=== PATIENT | male | born 1985 | race African-American/Black ===

== ENCOUNTER 2022-02-26 12:50 | Inpatient (IN) | payer MEDICAID ==
[~2022-02-26] VITALS: Ht 185.4 cm; Wt 110.1 kg
--- NOTE | 2022-02-26 13:00 | NUR ---
pts wet clothing removed and he is placed in green scrubs. food and water provided. pt will be medicated. pt is cooperative with care and tech is doing belonging inventory.
[2022-02-26] MEDS ORDERED: olanzapine 10mg tablet PO STA (13:03)
[2022-02-26] MEDS ORDERED: LORazepam 1 MG tablet PO ONE (13:05)
[2022-02-26] MEDS ORDERED: venlafaxine 25mg tablet PO ONE (13:05)
[2022-02-26 13:38] LABS: BASOPHILS % (AUTO) 0.5 % (0-1); EOSINOPHILS # (AUTO) 0.1 X10'3 (0-0.9); EOSINOPHILS % (AUTO) 1.1 % (0-6); HEMATOCRIT 45.1 % (42.0-52.0); HEMOGLOBIN 14.7 g/dl (14.0-17.9); LYMPHOCYTES % (AUTO) 20.9 % (21-51); MEAN CORPUSCULAR HEMOGLOBIN 29.1 PG (27.0-31.0); MEAN CORPUSCULAR HGB CONC 32.7 g/dL (33.0-36.5); MEAN CORPUSCULAR VOLUME 88.9 FL (78-98); MEAN PLATELET VOLUME 6.5 FL (7.4-10.4); MONOCYTES # (AUTO) 0.5 X10'3 (0-0.9); MONOCYTES % (AUTO) 10.1 % (2-12); NEUTROPHILS # (AUTO) 3.2 X10'3 (1.8-7.7); NEUTROPHILS % (AUTO) 67.4 % (42-75); PLATELET COUNT 299 X10'3 (140-440); RED BLOOD COUNT 5.07 X10'6 (4.70-6.10); RED CELL DISTRIBUTION WIDTH 13.1 % (11.5-14.5); WHITE BLOOD COUNT 4.7 X10'3 (4.5-11.0)
[2022-02-26 14:00] LABS: ALANINE AMINOTRANSFERASE 78 U/L (12-78); ALBUMIN 3.8 G/DL (3.4-5.0); ALBUMIN/GLOBULIN RATIO 0.8 (1.1-1.5); ALKALINE PHOSPHATASE 113 IU/L (46-116); ANION GAP 8 (8-16); ASPARTATE AMINO TRANSFERASE 85 U/L (10-37); BILIRUBIN,TOTAL 0.5 MG/DL (0.1-1.0); BLOOD UREA NITROGEN 7 MG/DL (7-18); BUN/CREATININE RATIO 6.6 (5.4-32.0); CALCIUM 8.7 MG/DL (8.5-10.1); CHLORIDE 104 MMOL/L (99-107); CREATINE KINASE 967 U/L (39-308); CREATININE 1.06 MG/DL (0.60-1.10); ETHANOL 0.128 GM/DL (0.0-0.010); GLUCOSE 93 MG/DL (70-104); POTASSIUM 3.9 MMOL/L (3.5-5.1); SODIUM 145 MMOL/L (135-145); TOTAL CARBON DIOXIDE 32.9 MMOL/L (24-32); TOTAL PROTEIN 8.5 G/DL (6.4-8.2); eGFR 79 ML/MIN
--- NOTE | 2022-02-26 14:42 | NUR ---
pt resting at this time. no distress noted. will continue to monitor.
--- NOTE | 2022-02-26 16:40 | NUR ---
PT SLEEPING. NO DISTRESS NOTED. WILL CONTINUE TO MONITOR.
--- NOTE | 2022-02-26 18:02 | NUR ---
PT CONTINUES TO SLEEP. WILL ATTEMPT TO COLLECT URINE WHEN HE WAKES.
--- NOTE | 2022-02-26 22:29 | NUR ---
The patient transferred to bed 23 in the ER overflow. He was very drowsy but cooperative. He gave a urine sample and a meal was given to him.
[2022-02-26] MEDS ORDERED: NO HOME MEDS (22:40)
[2022-02-26 22:59] LABS: CLARITY,URINE SLIGHTLY CLOUDY (Clear); COLOR,URINE YELLOW (Yellow); GLUCOSE, URINE NEGATIVE (Neg); KETONES,URINE TRACE mg/dl (Neg); LEUKOCYTE ESTERASE ,URINE NEGATIVE (Neg); NITRITES, URINE NEGATIVE (Neg); OCCULT BLOOD,URINE SMALL (Neg); PROTEIN,URINE TRACE mg/dl (Neg); UROBILINOGEN,URINE 0.2 E.U/dL (0.2-1.0)
[2022-02-26 23:00] LABS: UA COLLECTION TYPE CLN CATCH MIDSTREAM; URINE AMPHETAMINE SCREEN POSITIVE (Neg); URINE BARBITUATE SCREEN NEGATIVE (Neg); URINE BENZODIAZEPINES SCREEN NEGATIVE (Neg); URINE CANNABINOID SCREEN NEGATIVE (Neg); URINE COCAINE SCREEN NEGATIVE (Neg); URINE METHADONE SCREEN NEGATIVE (Neg); URINE OPIATE SCREEN NEGATIVE (Neg); URINE PHENCYCLIDINE SCREEN NEGATIVE (Neg)
[2022-02-26 23:04] LABS: BACTERIA,URINE FEW /HPF (Neg); MUCUS STRANDS FEW /LPF (Neg); SQUAMOUS EPITHELIAL CELL,UR FEW /LPF (FEW)
[2022-02-26 23:05] LABS: TRANSITIONAL EPI CELLS,URINE FEW /HPF; YEAST FEW /HPF (NEGATIVE)
--- NOTE | 2022-02-26 23:28 | NUR ---
The patient appears to be sleeping
--- NOTE | 2022-02-26 23:29 | NUR ---
PACKET SENT TO [facility]
--- NOTE | 2022-02-27 01:04 | NUR ---
The patient appears to be sleeping but is tossing and turning
--- NOTE | 2022-02-27 02:54 | NUR ---
The patient appears to be sleeping
--- NOTE | 2022-02-27 05:10 | NUR ---
The patient appears to be sleeping
--- NOTE | 2022-02-27 07:27 | NUR ---
Patient sleeping in bed at change of shift. No S/S of distress noted.
--- NOTE | 2022-02-27 09:38 | NUR ---
Patient ate breakfast, and is now sleeping in bed.
--- NOTE | 2022-02-27 10:14 | NUR ---
[facility] here evaluating patient.
--- NOTE | 2022-02-27 10:44 | NUR ---
Patient up to restroom, using warm wipes to clean himself with. New clean bed sheets applied.
--- NOTE | 2022-02-27 10:45 | NUR ---
pt upon interaction w/ [facility] clinician requested a shower, tech gave warm wipes as an alternative and fresh clothes. While pt cleaned up in the bathroom tech changed pt sheets
--- NOTE | 2022-02-27 12:18 | NUR ---
Breaking RN for lunch. Received report
--- NOTE | 2022-02-27 13:05 | NUR ---
Fina called for a nurse to nurse.
--- NOTE | 2022-02-27 14:00 | NUR ---
Lab here to draw new labs CK.
[2022-02-27 14:24] LABS: CREATINE KINASE 399 U/L (39-308)
[2022-02-27 15:05] VITALS: BP 143/98
--- NOTE | 2022-02-27 15:05 | NUR ---
RN received pt. from ER overflow escorted by security. Pt. cooperative with skin assessment and 1:1 assessment. 5150 states, "You jumped [place] the [place] with the intention of killing yourself". During interview pt. endorses SI without a plan, as well as auditory hallucinations, states he hear's random words like, "Chance". Pt. reports he had [facility] before he relapsed 2 days ago, drinking whiskey until he blacked out and snorting meth. Pt. reports he is now homeless. Pt. c/o headache rated 8/10 and received Tylenol 650mg po with good effect. Pt. c/o anxiety and received Ativan 1mg po with good effect.
--- NOTE | 2022-02-27 15:10 | NUR ---
Patient taken upstairs to [facility] with security supervisor. All belongings were taken with patient.
[2022-02-27] MEDS ORDERED: NICOTINE POLACRILEX 2 MG LOZENGE BC PRN (15:35)
[2022-02-27] MEDS ORDERED: magnesium hydroxide 30ml (MOM) UD suspension PO PRN (15:35)
[2022-02-27] MEDS ORDERED: mag hydrox/Alum hydrox/simeth 30ml oral suspension PO PRN (15:35)
[2022-02-27] MEDS ORDERED: loperamide 2mg capsule PO PRN (15:35)
[2022-02-27] MEDS ORDERED: acetaminophen 325mg tablet PO PRN (15:35)
[2022-02-27] MEDS ORDERED: traZODone 50mg tablet PO PRN (16:45)
[2022-02-27] MEDS ORDERED: LORazepam 1 MG tablet PO ONE (16:45)
[2022-02-27] MEDS: acetaminophen 325mg tablet PO PRN (16:48)
[2022-02-27 19:00] VITALS: BP 109/64
[2022-02-27] MEDS: traZODone 50mg tablet PO PRN (22:04)
--- NOTE | 2022-02-28 05:31 | NUR ---
Nursing Progress Note: Problem: Patient is 5150 status. Per admit note "You jumped off the clear [place] with the intention of killing yourself". During interview pt. endorses SI without a plan, as well as auditory hallucinations, states he hear's random words like, "Chance". Pt. reports he had been living at [facility] for 4 months before he relapsed 2 days ago, drinking whiskey until he blacked out and snorting meth. Pt. reports he is now homeless. Interventions: Medication administration, 1:1 MH assessment, maintained a safe and supportive environment, provided clear and simple instructions, provided encouragement regarding performance of ADLs, monitored behaviors and maintained clear boundaries, maintained Q15 minute safety checks. Response: Patient isolates in his room following shift change. Patient denies S/I, H/I or any hallucinations. Patient mineralizes any problems. A flat affect is present. Patient presents as depressed but denies same. Patient denies a BM today. Plan: Pt requires stabilization with medication adjustment and management in a safe and therapeutic environment.
[2022-02-28 08:00] VITALS: BP 147/99
[2022-02-28] MEDS: nicotine 21mg patch - 24 hr TD SCH (08:00)
[2022-02-28] MEDS: acetaminophen 325mg tablet PO PRN ×2 (08:09→18:03)
[2022-02-28 09:52] LABS: CHOL/HDL RATIO 2.1 (0.00-4.99); CHOLESTEROL 146 MG/DL (0-200); HDL CHOLESTEROL 68 MG/DL (35-60); LDL CHOLESTEROL 74 MG/DL (50-100); TRIGLYCERIDES 67 MG/DL (20-135)
[2022-02-28 09:54] LABS: HEMOGLOBIN A1C 5.6 % (4.5-6.2)
[2022-02-28] MEDS ORDERED: LORazepam 1 MG tablet PO ONE (12:55)
[2022-02-28] MEDS: fluticasone nasal spray 16GM bottle NS SCH (13:05)
[2022-02-28] MEDS: azithromycin 250mg tablet PO SCH (13:30)
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
[2022-02-28] MEDS ORDERED: venlafaxine XR 37.5mg cap (Q24H) PO ONE (19:05)
[2022-02-28 20:00] VITALS: BP 138/96
[2022-02-28] MEDS: traZODone 50mg tablet PO PRN (21:23)
--- NOTE | 2022-03-01 01:01 | NUR ---
Nursing Progress Note: Problem: Patient is 5150 status. Per admit note "You jumped off the clear [place] with the intention of killing yourself". During interview pt. endorses SI without a plan, as well as auditory hallucinations, states he hear's random words like, "Chance". Pt. reports he had been living at [facility] for 4 months before he relapsed 2 days ago, drinking whiskey until he blacked out and snorting meth. Pt. reports he is now homeless. Interventions: Medication administration, 1:1 MH assessment, maintained a safe and supportive environment, provided clear and simple instructions, provided encouragement regarding performance of ADLs, monitored behaviors and maintained clear boundaries, maintained Q15 minute safety checks. Response: Patient isolates in his room following shift change. Patient denies S/I, H/I or any hallucinations. Patient mineralizes any problems. A flat affect is present. Patient presents as depressed but denies same. Patient denies a BM today. Trazadone was given for sleep. Patient is medication compliant. Plan: Pt requires stabilization with medication adjustment and management in a safe and therapeutic environment.
[2022-03-01 08:00] VITALS: BP 149/91
[2022-03-01] MEDS: nicotine 21mg patch - 24 hr TD SCH (08:00)
[2022-03-01] MEDS: fluticasone nasal spray 16GM bottle NS SCH (08:00)
[2022-03-01] MEDS: venlafaxine XR 75mg capsule (Q24H) PO SCH (08:57)
[2022-03-01] MEDS: azithromycin 250mg tablet PO SCH (08:57)
--- NOTE | 2022-03-01 16:55 | NUR ---
Nursing Progress Note: Problem: Patient is 5150 status. Per admit note "You jumped [place] the [place] with the intention of killing yourself". During interview pt. endorses SI without a plan, as well as auditory hallucinations, states he hears random words like, "Chance". Pt. reports he had been living at [facility] for 4 months before he relapsed 2 days ago, drinking whiskey until he blacked out and snorting meth. Pt. reports he is now homeless. Interventions: Medication administration, 1:1 MH assessment, maintained a safe and supportive environment, provided clear and simple instructions, provided encouragement regarding performance of ADLs, monitored behaviors and maintained clear boundaries, maintained Q15 minute safety checks. Response: Received Pt in bed sleeping w/o distress at the beginning of this shift. Pt woke and was cooperative with vitals. Pt took AM meds w/o issue and ate breakfast. Pt attempted to be nice to Pt he had verbal confrontation with yesterday and was met with anger. Pt able to avoid interaction with other Pt and was pleasant and cooperative in interaction. Pt talkative when engaged and states he is going to get well and get out of here. Pt ate lunch well and watched TV in afternoon. He napped in the morning and his sweatshirt was gotten out of storage for him. Pt speaking clearly and coherently but appears guarded with information. Plan: Pt requires stabilization with medication adjustment and management in a safe and therapeutic environment.
[2022-03-01] MEDS: acetaminophen 325mg tablet PO PRN (17:34)
[2022-03-01 20:00] VITALS: BP 149/95
[2022-03-01] MEDS ORDERED: LORazepam 1 MG tablet PO ONE (20:10)
[2022-03-01] MEDS: traZODone 50mg tablet PO PRN (21:01)
--- NOTE | 2022-03-02 05:05 | NUR ---
Nursing Progress Note: Problem: Patient is 5150 status. Per admit note "You jumped off the clear [place] with the intention of killing yourself". During interview pt. endorses SI without a plan, as well as auditory hallucinations, states he hear's random words like, "Chance". Pt. reports he had been living at [facility] for 4 months before he relapsed 2 days ago, drinking whiskey until he blacked out and snorting meth. Pt. reports he is now homeless. Interventions: Medication administration, 1:1 MH assessment, maintained a safe and supportive environment, provided clear and simple instructions, provided encouragement regarding performance of ADLs, monitored behaviors and maintained clear boundaries, maintained Q15 minute safety checks. Response: Patient primarily isolates in his room following shift change. He is well oriented. Patient states he feels depressed but not suicidal. Patient denies H/I. Some anxiety was present this shift. Patient was given PRN Trazadone and an Ativan. The patient is quite cooperative and medication compliant. Plan: Pt requires stabilization with medication adjustment and management in a safe and therapeutic environment.
[2022-03-02 08:00] VITALS: BP 106/66
[2022-03-02] MEDS: nicotine 21mg patch - 24 hr TD SCH (08:00)
[2022-03-02] MEDS ORDERED: salt irrigation nasal spray 45 ML SPRAY NS PRN (08:05)
[2022-03-02] MEDS ORDERED: benzocaine/menthol oral lozeng 1 EACH BOX MM PRN (08:05)
--- NOTE | 2022-03-02 08:06 | NUR ---
Received orders from Dr. Casillas for nasal saline and Chloraseptic throat lozenges to be given PRN r/t postnasal drip causing pt. to have difficulty sleeping. Pt. has sinusitis, will continue to monitor closely.
[2022-03-02] MEDS ORDERED: HALLS - SOOTHE MENTHOL 1.8 MG cough drop LOZENGE MM PRN (08:13)
[2022-03-02] MEDS: azithromycin 250mg tablet PO SCH (08:38)
[2022-03-02] MEDS: venlafaxine XR 75mg capsule (Q24H) PO SCH (08:39)
[2022-03-02] MEDS: fluticasone nasal spray 16GM bottle NS SCH (08:39)
[2022-03-02] MEDS: hydrOXYzine 25 MG tablet PO PRN (14:43)
--- NOTE | 2022-03-02 16:03 | NUR ---
Nursing Progress Note: Problem : Patient is 5150 status. Per admit note "You jumped off the [place] with the intention of killing yourself". During interview pt. endorses SI without a plan, as well as auditory hallucinations, states he hear's random words like, "Chance". Pt. reports he had been living at [facility] for 4 months before he relapsed 2 days ago, drinking whiskey until he blacked out and snorting meth. Pt. reports he is now homeless. Interventions : Introduced self and established rapport, maintained a safe and supportive environment, ensured contract for safety, provided clear and simple instructions, provided education on hand washing r/t positive MRSA swab, and maintained Q 15min safety checks. Response : Received pt. sleeping in bed at the beginning of the shift, he awoke and attended breakfast in the Group Room. Pt. sat up afterwards and was observed to be interacting appropriately with others. Pt. greeted this typewriter assembler appropriately, however reported he feels tired because he did not sleep well last night. Later, at approximately 1430, pt. requested an anxiolytic, and stated, "People are invading my space and I'm trying not to go off!" He retreated to his room to lay down and this typewriter assembler obtained an order from Dr. Casillas for PRN Atarax 25mg TID, PRN. This medication was administered with effectiveness. 1:1 was completed, pt. is currently denying any S/I and reports some ongoing depression r/t lack of housing. Plan : Per Dr. Casillas, pt. continues to require a safe and supportive environment and is at this time at high risk if discharged.
[2022-03-02 20:17] VITALS: BP 135/77
[2022-03-02] MEDS: traZODone 50mg tablet PO PRN (20:32)
[2022-03-03] MEDS: traZODone 50mg tablet PO PRN ×3 (01:38→21:29)
--- NOTE | 2022-03-03 02:55 | NUR ---
Nursing Progress Note: Problem : Patient is 5150 status. Per admit note "You jumped off the [place] with the intention of killing yourself". During interview pt. endorses SI without a plan, as well as auditory hallucinations, states he hear's random words like, "Chance". Pt. reports he had been living at [facility] for 4 months before he relapsed 2 days ago, drinking whiskey until he blacked out and snorting meth. Pt. reports he is now homeless. Interventions : Introduced self and established rapport, maintained a safe and supportive environment, ensured contract for safety, provided clear and simple instructions, provided education on hand washing r/t positive MRSA swab, and maintained Q 15min safety checks. Response : Pt up on unit at start of shift. Interacting pleasantly with staff and other pts. He asked about medication for sleep. He said "I have not been sleeping hardly at all" Documented sleep hours for the last 3 days = 9, 7.5, and 8. Pt took first dose of PRN Trazodone and slept for several hours, Woke up given second dose per his request. Pt is back to bed sleeping at this time. He denies SI/HI A/V/H Plan : Per Dr. Casillas, pt. continues to require a safe and supportive environment and is at this time at high risk if discharged.
[2022-03-03 08:00] VITALS: BP 114/59
[2022-03-03] MEDS: fluticasone nasal spray 16GM bottle NS SCH (08:00)
[2022-03-03] MEDS: nicotine 21mg patch - 24 hr TD SCH (08:00)
[2022-03-03] MEDS: azithromycin 250mg tablet PO SCH (08:01)
[2022-03-03] MEDS: venlafaxine XR 75mg capsule (Q24H) PO SCH (08:01)
--- NOTE | 2022-03-03 12:39 | NUR ---
Initial: Pt admit DX major depressive d/o, SI, meth/etoh use d/o per EMR. PO ~100% mostly regular diet meeting estimated needs. LBM 03/01 per EMR. No nutrition interventions at this time. Will continue to follow. Rec: 1. continue regular diet 2. bowel care per rx 3. weekly wts Addendum: 03/03/22 at [address] Amended: Links added.
--- NOTE | 2022-03-03 14:03 | NUR ---
5250 RELEASED Addendum: 03/03/22 at 1411 by Leticia WOLFF Patient willing to sign [facility]
--- NOTE | 2022-03-03 17:56 | NUR ---
Nursing Progress Note: Problem: Patient is 5150 status. Per admit note "You jumped off the [place] with the intention of killing yourself". During interview pt. endorses SI without a plan, as well as auditory hallucinations, states he hear's random words like, "Chance". Pt. reports he had been living at [facility] for 4 months before he relapsed 2 days ago, drinking whiskey until he blacked out and snorting meth. Pt. reports he is now homeless. Interventions: Medication administration, 1:1 MH assessment, maintained a safe and supportive environment, provided clear and simple instructions, provided encouragement regarding performance of ADLs, monitored behaviors and maintained clear boundaries, maintained Q15 minute safety checks. Response: RN received pt. asleep in bed at start of shift. Pt. awoke for breakfast. Pt. went back to sleep. Pt. won his hearing today and signed voluntary. 1:1 done in community room. Reports feeling better, states, I need to stay a couple more days to figure out my housing situation figured out. Pt. reports his sinusitis symptoms are improving, pt. states, I think the antibiotics are working. Plan: Pt requires stabilization with medication adjustment and management in a safe and therapeutic environment.
[2022-03-03 20:00] VITALS: BP 138/79
--- NOTE | 2022-03-04 02:24 | NUR ---
Nursing Progress Note: Problem: Patient is 5150 status. Per admit note "You jumped off the clear [place] with the intention of killing yourself". During interview pt. endorses SI without a plan, as well as auditory hallucinations, states he hear's random words like, "Chance". Pt. reports he had been living at [facility] for 4 months before he relapsed 2 days ago, drinking whiskey until he blacked out and snorting meth. Pt. reports he is now homeless. Interventions: Medication administration, 1:1 assessment, maintained a safe and supportive environment, maintained Q15 minute safety checks. Response: Pt. up and watching football at the start of the shift. He was social with other patients. During our 1:1 he reports feeling better, having time to think about his life and figure out where to go from here. Reports recent stressors of the mother of his 5 month old losing custody. Denied any current S/I, H/I, A/V/H. Affect was euthymic, mood "good." He states he plans on going to the [facility] after discharge and work their program till he can save up enough money to get on his feet. Trazadone PRN x 2 administered per patients request due to sleep issues. He has been sleeping well since he went to bed. Plan: Pt requires stabilization with medication adjustment and management in a safe and therapeutic environment.
[2022-03-04 08:00] VITALS: BP 115/74
[2022-03-04] MEDS: nicotine 21mg patch - 24 hr TD SCH (08:00)
[2022-03-04] MEDS: fluticasone nasal spray 16GM bottle NS SCH (08:00)
[2022-03-04] MEDS: venlafaxine XR 75mg capsule (Q24H) PO SCH (08:30)
[2022-03-04] MEDS: azithromycin 250mg tablet PO SCH (08:31)
--- NOTE | 2022-03-04 16:14 | NUR ---
Therapeutic group Description: Daily therapeutic groups support [facility] crisis-stabilization mission. Topic: psycho-social education regarding warm lines, crisis lines, having the numbers your need with you (providers, emergency contacts, etc). Exercise: identifying the emotions in your heart, and the amount. Intervention: Therapeutic communication, peer support, validation by peers, coping skills and psychosocial education. Secondarily, intellectual and physical activity, peer, and staff companionship, alleviating and discouraging isolation. Response: Client participated in group, watching quietly. Client stated he felt overwhelmed: "This [indicating the unit] is just a lot. The last few days have been intense." Client talked with peers, and seemed to relax. Treatment Until stable, client requires time in a safe and therapeutic environment employing multidisciplinary treatments, including therapeutic groups.
--- NOTE | 2022-03-04 17:55 | NUR ---
Nursing Progress Note: Problem: Patient is 5150 status. Per admit note "You jumped off the clear [place] with the intention of killing yourself". During interview pt. endorses SI without a plan, as well as auditory hallucinations, states he hears random words like, "Chance". Pt. reports he had been living at [facility] for 4 months before he relapsed 2 days ago, drinking whiskey until he blacked out and snorting meth. Pt. reports he is now homeless. Interventions: Medication administration, 1:1 MH assessment, maintained a safe and supportive environment, provided clear and simple instructions, provided encouragement regarding performance of ADLs, monitored behaviors and maintained clear boundaries, maintained Q15 minute safety checks. Response: RN received pt. asleep in bed at start of shift. Pt. awoke for breakfast and took all medications. 1:1 done at bedside, pt. denies SI/HI, A/V hallucinations. Pt. reports feeling anxious about being able to take care of his daughter who is currently with her mother, however, his daughters mother also has mental health issues. Pt. states, I realize I need to get myself stable first before I can help my daughter. Pt. reports he hopes to get into a program at [facility] where he can live and work. Pt. observed socializing with peers and watching TV in the community room. Pt. states, I need to let my roommate know I need some space. Plan: Pt requires stabilization with medication adjustment and management in a safe and therapeutic environment.
[2022-03-04 20:00] VITALS: BP 145/89
[2022-03-04] MEDS: traZODone 50mg tablet PO SCH (21:34)
--- NOTE | 2022-03-05 03:29 | NUR ---
Nursing Progress Note: Problem: Patient is 5150 status. Per admit note "You jumped off the clear [place] with the intention of killing yourself". During interview pt. endorses SI without a plan, as well as auditory hallucinations, states he hear's random words like, "Chance". Pt. reports he had been living at [facility] for 4 months before he relapsed 2 days ago, drinking whiskey until he blacked out and snorting meth. Pt. reports he is now homeless. Interventions: Medication administration, 1:1 assessment, maintained a safe and supportive environment, maintained Q15 minute safety checks. Response: Received Pt in community room after dinner watching TV with others. Pt pleasant and cooperative with vitals and overall. Pt hoping to get into the [employer] and start job searching. Denied any current S/I, H/I, A/V/H. Pt very tolerant of a manic Pts intrusiveness and advances. He took HS meds and went to bed where he is sleeping w/o distress. Plan: Pt requires stabilization with medication adjustment and management in a safe and therapeutic environment.
[2022-03-05] MEDS: hydrOXYzine 25 MG tablet PO PRN (05:30)
[2022-03-05 07:30] VITALS: BP 117/72
[2022-03-05] MEDS: nicotine 21mg patch - 24 hr TD SCH (08:00)
[2022-03-05] MEDS: fluticasone nasal spray 16GM bottle NS SCH (08:00)
[2022-03-05] MEDS: azithromycin 250mg tablet PO SCH (08:08)
[2022-03-05] MEDS: venlafaxine XR 75mg capsule (Q24H) PO SCH (08:08)
--- NOTE | 2022-03-05 09:48 | NUR ---
CASE MANAGEMENT [facility] coming to interview client at 2 pm today, confirmed with Khari Trevizo LCSW
--- NOTE | 2022-03-05 15:11 | NUR ---
ACCEPTED AT [facility]
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
--- NOTE | 2022-03-05 18:35 | NUR ---
Note below was charted on pt. in error.
--- NOTE | 2022-03-05 18:36 | NUR ---
Nursing Progress Note: Problem: Patient is 5150 status. Per admit note "You jumped off the clear [place] with the intention of killing yourself". During interview pt. endorses SI without a plan, as well as auditory hallucinations, states he hears random words like, "Chance". Pt. reports he had been living at [facility] for 4 months before he relapsed 2 days ago, drinking whiskey until he blacked out and snorting meth. Pt. reports he is now homeless. Interventions: Medication administration, 1:1 MH assessment, maintained a safe and supportive environment, provided clear and simple instructions, provided encouragement regarding performance of ADLs, monitored behaviors and maintained clear boundaries, maintained Q15 minute safety checks. Response: RN received pt. asleep in bed at start of shift. Pt awoke for breakfast and took all medication. Pt. had interview with [facility] and was accepted. Pt. will be discharged to [facility] on Thursday. 1:1 done at bedside, pt denies all psych symptoms and reports he is happy about getting into the the [facility]. Pt. was social and observed watching TV in community room with peers. Plan: Pt requires stabilization with medication adjustment and management in a safe and therapeutic environment.
[2022-03-05 19:00] VITALS: BP 125/74
[2022-03-05] MEDS: traZODone 50mg tablet PO SCH (20:32)
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
[2022-03-06] MEDS ORDERED: HYDR-3686 PO (07:27)
[2022-03-06] MEDS ORDERED: NICO-687 TD (07:27)
[2022-03-06] MEDS ORDERED: FLUT16SP NS (07:27)
[2022-03-06] MEDS ORDERED: TRAZ-256 PO (07:27)
[2022-03-06] MEDS ORDERED: VENL150T3 PO (07:27)
[2022-03-06] MEDS: venlafaxine XR 75mg capsule (Q24H) PO SCH (07:32)
[2022-03-06] MEDS: nicotine 21mg patch - 24 hr TD SCH (07:34)
[2022-03-06] MEDS: fluticasone nasal spray 16GM bottle NS SCH (07:34)
[2022-03-06 08:00] VITALS: BP 105/60
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
--- NOTE | 2022-03-06 14:18 | NUR ---
[facility] ADMIT 03/11/22 Ilda has been admitted to [facility], they will not be able to admit him until next week on 03/11/2022. (Thursday03/10/2022 is a holiday). AZAM Champagne
--- NOTE | 2022-03-06 15:55 | NUR ---
Nursing Progress Note: Ilda Problem: Patient is 5150 status. Per admit note "You jumped off the clear [place] bridge with the intention of killing yourself". During interview pt. endorses SI without a plan, as well as auditory hallucinations, states he hears random words like, "Chance". Pt. reports he had been living at [facility] for 4 months before he relapsed 2 days ago, drinking whiskey until he blacked out and snorting meth. Pt. reports he is now homeless. Interventions: Medication administration, 1:1 MH assessment, maintained a safe and supportive environment, provided clear and simple instructions, provided encouragement regarding performance of ADLs, monitored behaviors and maintained clear boundaries, maintained Q15 minute safety checks. Response: Pt. received asleep and awoke to attend breakfast. Pt. took his medications without hesitation and denies all MH symptoms. He is cooperative with staff and has good eye contact. He ate all meals with cohorts and ambulated around the unit most of the shift. He spent time socializing with cohorts and watching TV. He received a CXR and was tested for COVID 19 d/t upcoming placement. He has good hygiene, well groomed, and wears unit scrubs. Pt. reports his DC has been moved to Thursday d/t the holiday. Plan: Pt requires stabilization with medication adjustment and management in a safe and therapeutic environment.
[2022-03-06 20:00] VITALS: BP 132/78
[2022-03-06] MEDS: traZODone 50mg tablet PO SCH (21:24)
--- NOTE | 2022-03-06 23:22 | NUR ---
Nursing Progress Note: Ilda Problem: Patient is 5150 status. Per admit note "You jumped off the clear [place] bridge with the intention of killing yourself". During interview pt. endorses SI without a plan, as well as auditory hallucinations, states he hears random words like, "Chance". Pt. reports he had been living at [facility] for 4 months before he relapsed 2 days ago, drinking whiskey until he blacked out and snorting meth. Pt. reports he is now homeless. Interventions: Medication administration, 1:1 MH assessment, maintained a safe and supportive environment, provided clear and simple instructions, provided encouragement regarding performance of ADLs, monitored behaviors and maintained clear boundaries, maintained Q15 minute safety checks. Response: The patient is in the community room watching television and socializing with his peers. The patient presents as upbeat. He is well oriented and cooperative. The patient states he is happy to be transferring the [facility] soon, he states it will be Thursday. The patient denies S/I, H/I or any hallucinations. The patient is compliant with medications. He is cooperative with staff. Plan: Pt requires stabilization with medication adjustment and management in a safe and therapeutic environment.
[2022-03-07] MEDS: venlafaxine XR 75mg capsule (Q24H) PO SCH (07:24)
[2022-03-07 08:00] VITALS: BP 116/70
[2022-03-07] MEDS: nicotine 21mg patch - 24 hr TD SCH (08:00)
[2022-03-07] MEDS: fluticasone nasal spray 16GM bottle NS SCH (08:00)
--- NOTE | 2022-03-07 16:20 | NUR ---
Nursing Progress Note: Ilda Problem: Patient is 5150 status. Per admit note "You jumped off the clear [place] bridge with the intention of killing yourself". During interview pt. endorses SI without a plan, as well as auditory hallucinations, states he hears random words like, "Chance". Pt. reports he had been living at [facility] for 4 months before he relapsed 2 days ago, drinking whiskey until he blacked out and snorting meth. Pt. reports he is now homeless. Interventions: Medication administration, 1:1 MH assessment, maintained a safe and supportive environment, provided clear and simple instructions, provided encouragement regarding performance of ADLs, monitored behaviors and maintained clear boundaries, maintained Q15 minute safety checks. Response: Pt. received asleep and awoke to take his medications. He continues to deny all MH symptoms, and reports hes looking forward to going to the [facility] He is cooperative with staff and interacts with [facility] appropriately. He ate all meals in the community room with [facility]. He spent a considerable amount of time watching tv. His hygiene is good, well groomed, and wears unit scrubs. Pt. Dc plan is to leave on Thursday03/11/22. Pt. refused scheduled Nasonex and Nicotine patch reporting, he doesnt need either one. Plan: Pt requires stabilization with medication adjustment and management in a safe and therapeutic environment.
--- NOTE | 2022-03-07 16:20 | NUR ---
Nursing Progress Note: Ilda Problem: Patient is 5150 status. Per admit note "You jumped off the clear [place] bridge with the intention of killing yourself". During interview pt. endorses SI without a plan, as well as auditory hallucinations, states he hears random words like, "Chance". Pt. reports he had been living at [facility] for 4 months before he relapsed 2 days ago, drinking whiskey until he blacked out and snorting meth. Pt. reports he is now homeless. Interventions: Medication administration, 1:1 MH assessment, maintained a safe and supportive environment, provided clear and simple instructions, provided encouragement regarding performance of ADLs, monitored behaviors and maintained clear boundaries, maintained Q15 minute safety checks. Response: Pt. received asleep and awoke to take his medications. He continues to deny all MH symptoms, and reports hes looking forward to going to the [facility]. He is cooperative with staff and interacts with [facility] appropriately. He ate all meals in the community room with [facility]. He spent a considerable amount of time watching tv. His hygiene is good, well groomed, and wears unit scrubs. Pt. Dc plan is to leave on Thursday03/11/22. Pt. refused scheduled Nasonex and Nicotine patch reporting, he doesnt need either one. Plan: Pt requires stabilization with medication adjustment and management in a safe and therapeutic environment.
[2022-03-07 19:52] VITALS: BP 147/85
[2022-03-07] MEDS: traZODone 50mg tablet PO SCH (20:49)
[2022-03-08] MEDS: venlafaxine XR 75mg capsule (Q24H) PO SCH (07:52)
[2022-03-08] MEDS: nicotine 21mg patch - 24 hr TD SCH (07:53)
[2022-03-08] MEDS: fluticasone nasal spray 16GM bottle NS SCH (07:53)
[2022-03-08 08:00] VITALS: BP 110/64
--- NOTE | 2022-03-08 15:30 | NUR ---
Nursing Progress Note: Problem: Patient is 5150 status. Per admit note "You jumped off the clear [place] bridge with the intention of killing yourself". During interview pt. endorses SI without a plan, as well as auditory hallucinations, states he hears random words like, "Chance". Pt. reports he had been living at [facility] for 4 months before he relapsed 2 days ago, drinking whiskey until he blacked out and snorting meth. Pt. reports he is now homeless. Interventions: Medication administration, 1:1 MH assessment, maintained a safe and supportive environment, provided clear and simple instructions, provided encouragement regarding performance of ADLs, monitored behaviors and maintained clear boundaries, maintained Q15 minute safety checks. Response: Received Pt in bed sleeping w/o distress at change of shift. He woke and was cooperative with vitals and returned to sleep. Pt woke and asked for water and ate breakfast in community room with others. He took his AM Effexor and stated he did not need Nasal [place] or Nicotine patch. Pt pleasant and cooperative and denies SI/HI and MH symptoms. 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 Pt watched footba; and ate snacks in community room in afternoon. Pt requested tests r/t STDs and hepatitis which were ordered By Jody YU. Plan: Pt requires stabilization with medication adjustment and management in a safe and therapeutic environment. Pt. Dc plan is to leave on Thursday03/11/22 to the [facility].
[2022-03-08 19:00] VITALS: BP 139/78
[2022-03-08] MEDS: traZODone 50mg tablet PO SCH (20:37)
--- NOTE | 2022-03-09 04:21 | NUR ---
RN PROGRESS NOTE: LEGAL HOLD: [facility] for DTS REASON FOR ADMIT: Per 5150 "You jumped off the clear [place] bridge with the intention of killing yourself". During interview pt. endorsed SI without a plan, as well as auditory hallucinations, states he hears random words like, "Chance". Pt. reports he had been living at [facility] for 4 months before he relapsed 2 days ago, drinking whiskey until he blacked out and snorting meth. Pt. reports he is now homeless. INTERVENTIONS: 1:1 assessments. Admin medications and monitor for side effects. Q 15 min checks for safety, RESPONSE: Client was out on unit socializing and watching TV. He is pleasant and cooperative. Denies SI at this time. Took 250 mg Trazodone Tab PO for sleep. Fell asleep w/o difficulty. Client is awaiting discharge on Thursday.
[2022-03-09 08:00] VITALS: BP 122/63
[2022-03-09] MEDS: fluticasone nasal spray 16GM bottle NS SCH (08:00)
[2022-03-09] MEDS: venlafaxine XR 75mg capsule (Q24H) PO SCH (08:13)
[2022-03-09 13:32] LABS: HIV ANTIBODY 1&2 RAPID NON-REACTIVE (Neg)
--- NOTE | 2022-03-09 17:54 | NUR ---
Nursing Progress Note: Problem: Patient is 5150 status. Per admit note "You jumped off the clear [place] bridge with the intention of killing yourself". During interview pt. endorses SI without a plan, as well as auditory hallucinations, states he hears random words like, "Chance". Pt. reports he had been living at [facility] for 4 months before he relapsed 2 days ago, drinking whiskey until he blacked out and snorting meth. Pt. reports he is now homeless. Interventions: Medication administration, 1:1 MH assessment, maintained a safe and supportive environment, provided clear and simple instructions, provided encouragement regarding performance of ADLs, monitored behaviors and maintained clear boundaries, maintained Q15 minute safety checks. Response: Received patient sleeping in bed at shift change. Patient awakens and attends breakfast with his peers. Patient is very social and spends most of the day in the group room watching t.v., football and socializing with peers. Patient is excited to go to [facility] Thursday. Patient denies SI/HI, A/V/H. Patient is medication compliant and cooperative with care. Plan: Pt requires stabilization with medication adjustment and management in a safe and therapeutic environment. Pt. Dc plan is to leave on Thursday03/11/22 to the [facility].
[2022-03-09 20:00] VITALS: BP 134/85
[2022-03-09] MEDS: traZODone 50mg tablet PO SCH (21:16)
--- NOTE | 2022-03-10 02:24 | NUR ---
Nursing Progress Note: Problem: Patient is 5150 status. Per admit note "You jumped off the [place] with the intention of killing yourself". During interview pt. endorses SI without a plan, as well as auditory hallucinations, states he hears random words like, "Chance". Pt. reports he had been living at [facility] for 4 months before he relapsed 2 days ago, drinking whiskey until he blacked out and snorting meth. Pt. reports he is now homeless. Interventions: Medication administration, 1:1 MH assessment, maintained a safe and supportive environment, provided clear and simple instructions, provided encouragement regarding performance of ADLs, monitored behaviors and maintained clear boundaries, maintained Q15 minute safety checks. Response: Pt up in group room playing Ensogo at start of shift. Requested and took a shower. Pt is medication compliant, pleasant cooperative with care. He is looking forward to going to the [facility] Thursday. Plan: Pt requires stabilization with medication adjustment and management in a safe and therapeutic environment. Pt. Dc plan is to leave on Thursday03/11/22 to the [facility].
[2022-03-10 07:59] VITALS: BP 139/92
[2022-03-10] MEDS: venlafaxine XR 75mg capsule (Q24H) PO SCH (08:02)
--- NOTE | 2022-03-10 17:05 | NUR ---
Nursing Progress Note: Problem: Patient is 5150 status. Per admit note "You jumped off the clear [place] bridge with the intention of killing yourself". During interview pt. endorses SI without a plan, as well as auditory hallucinations, states he hears random words like, "Chance". Pt. reports he had been living at [facility] for 4 months before he relapsed 2 days ago, drinking whiskey until he blacked out and snorting meth. Pt. reports he is now homeless. Interventions: Medication administration, 1:1 MH assessment, maintained a safe and supportive environment, provided clear and simple instructions, provided encouragement regarding performance of ADLs, monitored behaviors and maintained clear boundaries, maintained Q15 minute safety checks. Response: RN received pt. asleep in bed at start of shift. Pt. awoke for breakfast and took all medication. Pt. is social and pleasant, watching TV in the community room. 1:1 done in community room. Pt. denies all psych symptoms, states, Im just ready to get out of here, Arielle been here to long. Plan: Pt requires stabilization with medication adjustment and management in a safe and therapeutic environment. Pt. Dc plan is to leave on Thursday03/11/22 to the [facility].
[2022-03-10 20:46] VITALS: BP 122/80
[2022-03-10] MEDS: traZODone 50mg tablet PO SCH (21:22)
--- NOTE | 2022-03-11 01:35 | NUR ---
Nursing Progress Note: Problem: Patient is 5150 status. Per admit note "You jumped off the clear [place] bridge with the intention of killing yourself". During interview pt. endorses SI without a plan, as well as auditory hallucinations, states he hears random words like, "Chance". Pt. reports he had been living at [facility] for 4 months before he relapsed 2 days ago, drinking whiskey until he blacked out and snorting meth. Pt. reports he is now homeless. Interventions: Medication administration, 1:1 MH assessment, maintained a safe and supportive environment, provided clear and simple instructions, provided encouragement regarding performance of ADLs, monitored behaviors and maintained clear boundaries, maintained Q15 minute safety checks. Response: Pt up in group room watching football and talking with peers. Pt is medication compliant, pleasant cooperative with care. He is looking forward to going to the [facility] Tomorrow . Pt said he is looking forward to getting a job. 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 Plan: Pt requires stabilization with medication adjustment and management in a safe and therapeutic environment. Pt. Dc plan is to leave on Thursday03/11/22 to the [facility]
[2022-03-11 08:13] VITALS: BP 117/57
[2022-03-11] MEDS: venlafaxine XR 75mg capsule (Q24H) PO SCH (08:19)
--- NOTE | 2022-03-11 11:05 | NUR ---
DISCHARGE NOTE: Pt. discharged to [facility], driven by county oil transport driver. Pt. discharged with all belongings and valuables. RN went over discharge paperwork with pt., pt. verbalized understanding and signed all paperwork including firearms restriction, emergency phone numbers including 911, f/u medications and aftercare. Pt. denies SI/HI, A/V hallucinations, pt. is A&Ox4 and in no apparent distress.
[2022-03-12 05:17] LABS: HBSAG SCREEN Negative (Negative); HEP A AB, IGM Negative (Negative); HEPATITIS C VIRUS ANTIBODY <0.1 s/co ratio (0.0-0.9)
[2022-03-12 08:12] LABS: RPR, QUANT. Non Reactive (NonRea<1:1)
== END 2022-03-11 11:05 | DRG 751 ==
LOC: ER 12:50 → ED HOLD 02-27 14:15 → ADULT MH 02-27 15:13
PROVIDERS: ADMIT Psychiatry & Neurology Psychiatry; ATTEND Psychiatry & Neurology Psychiatry
DX: F33.2 Major depressive disorder, recurrent severe without psychotic features (principal); F25.1 Schizoaffective disorder, depressive type; T14.91XA Suicide attempt, initial encounter; Z20.822 Contact with and (suspected) exposure to COVID-19; J01.90 Acute sinusitis, unspecified; R09.82 Postnasal drip; F15.20 Other stimulant dependence, uncomplicated; F10.20 Alcohol dependence, uncomplicated; Z59.00 Homelessness unspecified; Z91.51 Personal history of suicidal behavior; Y93.89 Activity, other specified; Y92.89 Other specified places as the place of occurrence of the external cause; Y99.8 Other external cause status
CPT/HCPCS: 36415; 71045; 80053; 80061; 80305; 80320; 81001; 82550; 83036; 84443; 85025; 86592; 86703; 86706; 86709; 86803; 87081; 87340; 87522; 87811; 99285; Q0177

== ENCOUNTER 2022-10-07 21:38 | Inpatient (IN) | payer MEDICAID ==
[~2022-10-07] VITALS: Ht 185.4 cm; Wt 102.7 kg
[~2022-10-07 21:38] MED LIST: FLUT16SP NS; HYDR-3686 PO; NICO-687 TD; TRAZ-256 PO; VENL150T3 PO
--- NOTE | 2022-10-07 23:30 | NUR ---
Patient arrived to room bed 25. Girlfriend walked back with him and then left. Patient pleasant and cooperative. Provided urine sample.
[2022-10-07 23:34] LABS: BASOPHILS % (AUTO) 0.8 % (0-1); EOSINOPHILS % (AUTO) 0.8 % (0-6); HEMATOCRIT 45.3 % (42.0-52.0); HEMOGLOBIN 14.9 g/dl (14.0-17.9); LYMPHOCYTES # (AUTO) 1.3 X10'3 (1.1-4.8); LYMPHOCYTES % (AUTO) 31.2 % (21-51); MEAN CORPUSCULAR HEMOGLOBIN 29.9 PG (27.0-31.0); MEAN CORPUSCULAR VOLUME 90.7 FL (78-98); MEAN PLATELET VOLUME 6.6 FL (7.4-10.4); MONOCYTES # (AUTO) 0.5 X10'3 (0-0.9); MONOCYTES % (AUTO) 12.5 % (2-12); NEUTROPHILS # (AUTO) 2.2 X10'3 (1.8-7.7); NEUTROPHILS % (AUTO) 54.7 % (42-75); PLATELET COUNT 261 X10'3 (140-440); RED CELL DISTRIBUTION WIDTH 13.2 % (11.5-14.5); WHITE BLOOD COUNT 4.1 X10'3 (4.5-11.0)
[2022-10-07 23:51] LABS: ALANINE AMINOTRANSFERASE 33 U/L (12-78); ALBUMIN 3.8 G/DL (3.4-5.0); ALKALINE PHOSPHATASE 96 IU/L (46-116); ANION GAP 11 (8-16); ASPARTATE AMINO TRANSFERASE 27 U/L (10-37); BILIRUBIN,TOTAL 0.5 MG/DL (0.1-1.0); BLOOD UREA NITROGEN 11 MG/DL (7-18); BUN/CREATININE RATIO 11.5 (10.0-20.0); CHLORIDE 101 MMOL/L (99-107); CREATININE 0.96 MG/DL (0.60-1.10); ETHANOL < 10 MG/DL (<10); GLUCOSE 109 MG/DL (70-104); LIPASE 96 U/L (73-393); POTASSIUM 3.7 MMOL/L (3.5-5.1); SALICYLATE 1.5 MG/DL (4.0-20.0); SODIUM 139 MMOL/L (135-145); TOTAL CARBON DIOXIDE 27.3 MMOL/L (24-32); TOTAL PROTEIN 7.7 G/DL (6.4-8.2); eCRCL 119 ML/MIN; eGFR > 90 ML/MIN
[2022-10-08] LABS: ACETAMINOPHEN < 2.0 UG/ML (10-30)
[2022-10-08 00:27] LABS: BILIRUBIN,URINE NEGATIVE (Neg); COLOR,URINE YELLOW (Yellow); GLUCOSE, URINE NEGATIVE (Neg); KETONES,URINE NEGATIVE (Neg); LEUKOCYTE ESTERASE ,URINE NEGATIVE (Neg); NITRITES, URINE NEGATIVE (Neg); OCCULT BLOOD,URINE TRACE-INTACT (Neg); PROTEIN,URINE NEGATIVE (Neg)
[2022-10-08 00:32] LABS: CLARITY,URINE SLIGHTLY CLOUDY (Clear); MUCUS STRANDS MANY /LPF (Neg); SQUAMOUS EPITHELIAL CELL,UR MODERATE /LPF (FEW); UA COLLECTION TYPE CLN CATCH MIDSTREAM
[2022-10-08 00:33] LABS: BACTERIA,URINE NONE SEEN /HPF (Neg); CAL OXALATE CRYSTALS 4+ /HPF (NEGATIVE); RBC,URINE 0-2 /HPF (0-2); WBC,URINE 0-4 /HPF (0-4)
[2022-10-08 00:46] LABS: URINE AMPHETAMINE SCREEN POSITIVE (Neg); URINE BARBITUATE SCREEN NEGATIVE (Neg); URINE BENZODIAZEPINES SCREEN NEGATIVE (Neg); URINE CANNABINOID SCREEN POSITIVE (Neg); URINE COCAINE SCREEN NEGATIVE (Neg); URINE METHADONE SCREEN NEGATIVE (Neg); URINE OPIATE SCREEN NEGATIVE (Neg); URINE PHENCYCLIDINE SCREEN NEGATIVE (Neg)
[2022-10-08] MEDS ORDERED: HYDR-3686 PO (01:20)
[2022-10-08] MEDS ORDERED: VENL150T3 PO (01:21)
[2022-10-08] MEDS ORDERED: hydrOXYzine 25 MG tablet PO PRN (01:50)
--- NOTE | 2022-10-08 02:02 | NUR ---
Patient sleeping, no complaints noted. Will continue to monitor.
--- NOTE | 2022-10-08 05:28 | NUR ---
PATIENT FRIENDLY AND COOPERATIVE. PATIENT HAS REMAINED IN BED THROGUH OUT NIGHT. NO OBVIOUS SIGNS OF DISTRESS TO NOTE. WILL CONTINUE TO MONITOR.
--- NOTE | 2022-10-08 06:45 | NUR ---
PT RESTING IN BED APPEARS TO BE SLEEPING. NO ACUTE DISTRESS NOTED AT THIS TIME.
[2022-10-08] MEDS: venlafaxine XR 75mg capsule (Q24H) PO SCH (08:34)
--- NOTE | 2022-10-08 08:57 | NUR ---
PT UP AND PICKING AT BREAKFAST TRAY. NO ACUTE DISTRESS NOTED AT THIS TIME.
--- NOTE | 2022-10-08 11:06 | NUR ---
PT WOKE UP THIS MORNING TO EAT BREAKFAST AND TAKE MEDICATION. PT DENIES ANY COMPLAINTS AT THIS TIME. PT CURRENTLY APPEARS TO BE SLEEPING IN BED. RESPIRATIONS EQUAL AND UNLABORED. NO ACUTE DISTRESS NOTED AT THIS TIME.
--- NOTE | 2022-10-08 13:50 | NUR ---
[facility] AT BEDSIDE WITH PT.
--- NOTE | 2022-10-08 15:45 | NUR ---
PT CURRENTLY RESTING IN BED APPEARS ASLEEP. RESPIRATIONS EQUAL AND UNLABORED. NO ACUTE DISTRESS NOTED AT THIS TIME.
--- NOTE | 2022-10-08 17:22 | NUR ---
PATIENT FRIENDLY AND COOPERATIVE ALL SHIFT. PT CURRENTLY LAYING IN BED APPEARS TO BE SLEEPING. RESPIRATIONS EQUAL AND UNLABORED. NO ACUTE DISTRESS NOTED AT THIS TIME.
--- NOTE | 2022-10-08 17:44 | NUR ---
PT CURRENTLY SITTING UP IN BED EATING HIS DINNER. NO ACUYTE DISTRESS NOTED AT THIS TIME.
--- NOTE | 2022-10-08 19:00 | NUR ---
The patient has been resting on his bed. He stated that he feels depressed and having suicidal thoughts. "I don't have any energy to do anything" He is very polite but clearly depressed.
--- NOTE | 2022-10-08 19:48 | NUR ---
The patient's girlfriend is here to visit at the bedside.
--- NOTE | 2022-10-08 21:07 | NUR ---
The patient appears to be sleeping
--- NOTE | 2022-10-08 23:15 | NUR ---
The patient appears to be sleeping
--- NOTE | 2022-10-09 01:16 | NUR ---
The patient appears to be sleeping
--- NOTE | 2022-10-09 03:06 | NUR ---
The patient currently appears to be sleeping but has been tossing and turning in his bed
--- NOTE | 2022-10-09 05:01 | NUR ---
The patient appears to be sleeping
--- NOTE | 2022-10-09 08:00 | NUR ---
Pt. awake and eating breakfast.
[2022-10-09] MEDS: venlafaxine XR 75mg capsule (Q24H) PO SCH (08:15)
--- NOTE | 2022-10-09 08:58 | NUR ---
nurse to nurse given to ABHIJEET Scanlon at [facility] in [place], [place].
--- NOTE | 2022-10-09 09:11 | NUR ---
ACCEPTED BY CB, TAD OFFICE AWARE, ETA TBD WILL COMMUNICATE WITH IN AN HOUR
--- NOTE | 2022-10-09 10:00 | NUR ---
Pt. awake and resting in bed in supine position.
--- NOTE | 2022-10-09 12:00 | NUR ---
Pt. awake and eating lunch and bedside.
--- NOTE | 2022-10-09 12:17 | NUR ---
[facility] ADMIT FILEMON 2000
[2022-10-09] MEDS ORDERED: acetaminophen 325mg tablet PO PRN ×3 (12:45→22:05)
--- NOTE | 2022-10-09 14:00 | NUR ---
Pt. asleep in bed on left side.
--- NOTE | 2022-10-09 16:00 | NUR ---
Pt. got up and used toilet and went back to bed. resting on right side.
--- NOTE | 2022-10-09 17:52 | NUR ---
Pt. asleep in bed on right side.
--- NOTE | 2022-10-09 18:56 | NUR ---
The patient has been resting on her bed. He is withdrawn, quiet, and has a flat affect. He is aware that he will be going to [facility] later tonight.
--- NOTE | 2022-10-09 20:29 | NUR ---
The patient is sitting at the bedside eating a snack and talking on the phone.
[2022-10-09] MEDS ORDERED: mag hydrox/Alum hydrox/simeth 30ml oral suspension PO PRN (22:05)
[2022-10-09] MEDS ORDERED: loperamide 2mg capsule PO PRN (22:05)
[2022-10-09] MEDS ORDERED: LORazepam 1 MG tablet PO ONE (22:10)
[2022-10-09 23:08] VITALS: BP 132/82; PULSE 77; RESP 16; TEMP 97.6; O2SAT 98
[2022-10-09 23:13] VITALS: RESP 16; O2SAT 98
--- NOTE | 2022-10-10 04:57 | NUR ---
Admit Note: Patient arrived on unit at 2137 via wheelchair. Pt is calm and cooperative. Skin check done. Pt is here for intentionally tried to end his life by taking about 12 pills, drank alcohol and used methamphetamines. Pt reported It became too much to live and no reason for me to live. Not able to make a safety plan and is asking for help today. Pt had a suicide attempt in February of 2022 when he jumped off a bridge. Multiple attempts in past such as laying on the road, suicide by photocopying machine operator and overdosing.
[2022-10-10 07:30] VITALS: RESP 12; O2SAT 96
[2022-10-10 08:00] VITALS: BP 111/67; PULSE 61; RESP 12; TEMP 97.9; O2SAT 96
[2022-10-10] MEDS: venlafaxine XR 75mg capsule (Q24H) PO SCH (08:03)
[2022-10-10 11:06] LABS: HEMOGLOBIN A1C 5.6 % (4.5-6.2)
[2022-10-10 13:26] LABS: HIV ANTIBODY 1&2 RAPID NON-REACTIVE (Neg)
[2022-10-10] MEDS: magnesium hydroxide 30ml (MOM) UD suspension PO PRN (16:43)
--- NOTE | 2022-10-10 17:43 | NUR ---
Problem : Pt admitted for suicide attempt by taking about 12 pills, drinking alcohol and using methamphetamines. Pt reported It became too much to live and no reason for me to live. Not able to make a safety plan and is asking for help today. Pt had a suicide attempt in February of 2022 when he jumped off a bridge. Multiple attempts in past such as laying on the road, suicide by commercial helicopter pilot and overdosing. Interventions : Maintained a safe and supportive environment, ensured contract for safety, provided clear and simple instructions, provided active listening and positive encouragement, encouraged participation on the unit, and maintained Q 15min safety checks. Response : RN received pt. asleep in bed at start of shift. Pt. awoke for breakfast and took AM medication. 1:1 done at bedside, pt. reports SI without plan. Pt. reports depression r/t life circumstances. Pt. isolated to his room most of the day and found frequently resting in bed. In afternoon pt. was observed out of his room more and talking on the phone. Pt. c/o constipation and received MOM, awaiting effect. Plan : Pt. requires interruption of current crisis, medication adjustments, and a safe and supportive environment.
[2022-10-10 19:00] VITALS: RESP 14; O2SAT 96
[2022-10-10 20:00] VITALS: BP 127/74; PULSE 69; RESP 14; TEMP 97.8; O2SAT 96
[2022-10-11] MEDS ORDERED: LORazepam 1 MG tablet PO ONE (02:40)
--- NOTE | 2022-10-11 05:31 | NUR ---
Nursing Progress Note: Problem: Pt admitted for suicide attempt by taking about 12 pills, drinking alcohol and using methamphetamines. Pt reported It became too much to live and no reason for me to live. Not able to make a safety plan and is asking for help today. Pt had a suicide attempt in February of 2022 when he jumped off a bridge. Multiple attempts in past such as laying on the road, suicide by atomic spectroscopist and overdosing. Interventions: Maintained a safe and supportive environment, ensured contract for safety, provided clear and simple instructions, provided active listening and positive encouragement, encouraged participation on the unit, and maintained Q 15min safety checks. Response: Received pt. in the day room where he was talking on the phone to his girlfriend. Pt seems happy after the phone calls for a short time before. Pt rates his depression is 8/10 and his anxiety is high. Pt has no HS medications. Pt is calm and cooperative during 1:1. Pt stated he is still having suicidal thought but contracts for safety. Necktie Turner asked if he left today would he try to harm himself. I dont know, it depends on the circumstances. Pt denies HI/AH/VH. Pt got up about 0155 stating that he has been awake for the last 3 hours. Necktie Turner obtained an order for Ativan 2mg from Dr. Patino. Good results from Ativan. Monitor for safety. Plan: Pt. requires interruption of current crisis, medication adjustments, and a safe and supportive environment.
[2022-10-11 07:00] VITALS: RESP 16; O2SAT 96
[2022-10-11 08:00] VITALS: BP 116/67; PULSE 60; RESP 12; TEMP 97.8; O2SAT 96
[2022-10-11] MEDS: venlafaxine XR 75mg capsule (Q24H) PO SCH (08:11)
[2022-10-11] MEDS: vitamin B comp w/Vit. C tab 1 TAB TABLET PO SCH (08:11)
[2022-10-11 16:24] LABS: HBSAG SCREEN Negative (Negative); HEP A AB, IGM Negative (Negative); HEP B CORE AB, IGM Negative (Negative); HEPATITIS C VIRUS ANTIBODY Non Reactive (Non Reactive)
--- NOTE | 2022-10-11 16:53 | NUR ---
Nursing Progress Note: Problem : Pt admitted for suicide attempt by taking about 12 pills, drinking alcohol and using methamphetamines. Pt reported It became too much to live and no reason for me to live. Not able to make a safety plan and is asking for help today. Pt had a suicide attempt in February of 2022 when he jumped off a bridge. Multiple attempts in past such as laying on the road, suicide by copy supervisor and overdosing. Interventions : Maintained a safe and supportive environment, ensured contract for safety, provided clear and simple instructions, provided active listening and positive encouragement, encouraged participation on the unit, and maintained Q 15min safety checks. Response : Nurse received pt. asleep at change of shift, pt. awoke for breakfast and returned to bed. 1:1 done at the bedside and medications administered with no issues. Pt requesting to have STD testing, c/o burning to penis. Urine was obtained for STD testing. Pt denies SI stating, not right now, Im just still feeling depressed. Pt denies A/VH. Pt states he didnt sleep well, pt has been seen napping this morning. Pt had a visitor from who appeared to be his significant other, visit went well. Pt seen talking on the phone. Plan : Pt. requires interruption of current crisis, medication adjustments, and a safe and supportive environment. Addendum: 10/11/22 at 1657 by Eva Ferrer RN New order to start of Remeron 15mg QHS for insomnia.
[2022-10-11 19:00] VITALS: RESP 17; O2SAT 99
[2022-10-11 20:34] VITALS: BP 144/84; PULSE 62; RESP 17; TEMP 97.1; O2SAT 99
[2022-10-11] MEDS: mirtazapine 15mg tablet PO SCH ×2 (20:54→23:30)
--- NOTE | 2022-10-11 22:04 | NUR ---
Nursing Progress Note: Problem : Pt admitted for suicide attempt by taking about 12 pills, drinking alcohol and using methamphetamines. Pt reported It became too much to live and no reason for me to live. Not able to make a safety plan and is asking for help today. Pt had a suicide attempt in February of 2022 when he jumped off a bridge. Multiple attempts in past such as laying on the road, suicide by coping machine assembler and overdosing. Interventions : Maintained a safe and supportive environment, ensured contract for safety, provided clear and simple instructions, provided active listening and positive encouragement, encouraged participation on the unit, and maintained Q 15min safety checks. Response : This patient was observed in the community room following shift change. He socialized with others and watched television. Patient showered. 1:1 Interview in the community room. Patient tells this food writer, "I've been feeling a little down, but I was happy to see my girlfriend today!" Save for depression, this patient denies S/I, H/I, or any hallucinations. Later in the evening the patient is observed talking to his girlfriend on the phone. He presents as upbeat. The patient was medication compliant. He was started on Remeron for sleep tonight. The patient did have a BM today. Plan : Pt. requires interruption of current crisis, medication adjustments, and a safe and supportive environment.
[2022-10-12 07:00] VITALS: RESP 14; O2SAT 98
[2022-10-12 08:00] VITALS: BP 117/61; PULSE 64; RESP 14; TEMP 97.6; O2SAT 98
[2022-10-12] MEDS: venlafaxine XR 75mg capsule (Q24H) PO SCH (08:15)
[2022-10-12] MEDS: vitamin B comp w/Vit. C tab 1 TAB TABLET PO SCH (08:15)
[2022-10-12] MEDS: magnesium hydroxide 30ml (MOM) UD suspension PO PRN (11:38)
--- NOTE | 2022-10-12 17:38 | NUR ---
Nursing Progress Note: Ilda Problem : Pt admitted for suicide attempt by taking about 12 pills, drinking alcohol and using methamphetamines. Pt reported It became too much to live and no reason for me to live. Not able to make a safety plan and is asking for help today. Pt had a suicide attempt in February of 2022 when he jumped off a bridge. Multiple attempts in past such as laying on the road, suicide by copy holder and overdosing. Interventions : Maintained a safe and supportive environment, ensured contract for safety, provided clear and simple instructions, provided active listening and positive encouragement, encouraged participation on the unit, and maintained Q 15min safety checks. Response : Received pt asleep. Pt ate meals in the community room and took all medications cooperatively. 1:1 performed at bedside. Pt denies HI and AVH. Pt endorsed SI stating that he just had a depressing phone call from his girlfriend that her family is being negative about him. Pt self-isolated most of the shift in his room. Pt pleasant and cooperative with staff. Pt concerned about STI panel due to unprotected sex, lab status still pending. Pt observed interacting with peers in the community room. Plan : Pt. requires interruption of current crisis, medication adjustments, and a safe and supportive environment.
[2022-10-12 19:47] VITALS: BP 120/86; PULSE 56; RESP 16; TEMP 97.7; O2SAT 95
[2022-10-12] MEDS: mirtazapine 15mg tablet PO SCH (21:31)
--- NOTE | 2022-10-12 23:16 | NUR ---
Nursing Progress Note: Ilda Problem : Pt admitted for suicide attempt by taking about 12 pills, drinking alcohol and using methamphetamines. Pt reported It became too much to live and no reason for me to live. Not able to make a safety plan and is asking for help today. Pt had a suicide attempt in February of 2022 when he jumped off a bridge. Multiple attempts in past such as laying on the road, suicide by copy operator and overdosing. Interventions : Maintained a safe and supportive environment, ensured contract for safety, provided clear and simple instructions, provided active listening and positive encouragement, encouraged participation on the unit, and maintained Q 15min safety checks. Response : Received pt in dining room watching TV with peers. Pt is calm and cooperative. States he has some depression/anxiety, denies SI. He participated in snacks. Observed to be on the phone with his girlfriend...pt given PRN Remeron X2 for sleep. Pt went to sleep shortly after med pass. Plan : Pt. requires interruption of current crisis, medication adjustments, and a safe and supportive environment.
[2022-10-13 07:00] VITALS: RESP 20; O2SAT 95
[2022-10-13 07:51] VITALS: BP 121/58; PULSE 101; RESP 20; TEMP 97.7; O2SAT 95
[2022-10-13] MEDS: venlafaxine XR 75mg capsule (Q24H) PO SCH (08:24)
[2022-10-13] MEDS: vitamin B comp w/Vit. C tab 1 TAB TABLET PO SCH (08:24)
--- NOTE | 2022-10-13 16:32 | NUR ---
Nursing Progress Note: Ilda Problem : Pt admitted for suicide attempt by taking about 12 pills, drinking alcohol and using methamphetamines. Pt reported It became too much to live and no reason for me to live. Not able to make a safety plan and is asking for help today. Pt had a suicide attempt in February of 2022 when he jumped off a bridge. Multiple attempts in past such as laying on the road, suicide by mass spectroscopist and overdosing. Interventions : Maintained a safe and supportive environment, ensured contract for safety, provided clear and simple instructions, provided active listening and positive encouragement, encouraged participation on the unit, and maintained Q 15min safety checks. Response : Received pt asleep. Pt ate meals in the community room and took all medications cooperatively. 1:1 performed at bedside. Pt denies SI/HI and AVH. Pt self-isolated most of the shift in his room. Pt pleasant and cooperative with staff. Pt still concerned about STI panel due to unprotected sex, lab status still pending. Pt observed interacting with peers in the community room. Pt states that he is feeling better today. Pt attended group and took a shower today, appearance is well groomed. Plan : Pt. requires interruption of current crisis, medication adjustments, and a safe and supportive environment.
[2022-10-13 19:00] VITALS: RESP 16; O2SAT 59
[2022-10-13 19:37] VITALS: BP 140/81; PULSE 59; RESP 16; TEMP 97.4; O2SAT 99
[2022-10-13] MEDS: mirtazapine 15mg tablet PO SCH (21:56)
[2022-10-13] MEDS ORDERED: mirtazapine 15mg tablet PO ONE (22:52)
--- NOTE | 2022-10-14 01:59 | NUR ---
Nursing Progress Note: Ilda Problem : Pt admitted for suicide attempt by taking about 12 pills, drinking alcohol and using methamphetamines. Pt reported It became too much to live and no reason for me to live. Not able to make a safety plan and is asking for help today. Pt had a suicide attempt in February of 2022 when he jumped off a bridge. Multiple attempts in past such as laying on the road, suicide by newspaper copy editor and overdosing. Interventions : Maintained a safe and supportive environment, ensured contract for safety, provided clear and simple instructions, provided active listening and positive encouragement, encouraged participation on the unit, and maintained Q 15min safety checks. Response : Received pt. sitting quietly in the community room at change of shift. Pt. is pleasant and cooperative. Pt. denies SI/HI/AH/VH. Pt. is medication compliant. ELLIOTN Remeron provided this shift. Pt. participated in evening snack. Pt. observed interacting with peers and watching TV in the recreation room. Pt. talked on the phone and showered before going to bed. Plan : Pt. requires interruption of current crisis, medication adjustments, and a safe and supportive environment.
--- NOTE | 2022-10-14 04:50 | NUR ---
PNEUDRAULIC SYSTEMS MECHANIC documentation: I have reviewed and agree with all interventions, assessments performed and documented by Abdirahman Johnston.
[2022-10-14 07:00] VITALS: RESP 16; O2SAT 100
[2022-10-14 07:20] VITALS: BP 123/80; PULSE 68; RESP 16; TEMP 98; O2SAT 100
[2022-10-14] MEDS: vitamin B comp w/Vit. C tab 1 TAB TABLET PO SCH (08:29)
[2022-10-14] MEDS: venlafaxine XR 75mg capsule (Q24H) PO SCH (08:29)
--- NOTE | 2022-10-14 16:15 | NUR ---
Initial: Pt admit for major depressive order, suicidal ideation, meth use disorder per EMR. Pt continues on a regular diet with average PO intake of 86% x 15 meals which met 86% of estimated kcal needs and 85% estimated protein needs. LBM on 10/12 per EMR. Will continue to monitor. Recommendations: 1.continue regular diet 2.monitor PO intake trend and need for double protein or ONS if PO intake declines 3.routine bowel care 3.weekly scaled wt Addendum: 10/14/22 at [address] Amended: Links added.
--- NOTE | 2022-10-14 16:35 | NUR ---
Nursing Progress Note: Ilda Problem : Pt admitted for suicide attempt by taking about 12 pills, drinking alcohol and using methamphetamines. Pt reported It became too much to live and no reason for me to live. Not able to make a safety plan and is asking for help today. Pt had a suicide attempt in February of 2022 when he jumped off a bridge. Multiple attempts in past such as laying on the road, suicide by nuclear spectroscopist and overdosing. Interventions : Maintained a safe and supportive environment, ensured contract for safety, provided clear and simple instructions, provided active listening and positive encouragement, encouraged participation on the unit, and maintained Q 15min safety checks. Response : Patient was asleep at change of shift and up for breakfast. Patient is pleasant, calm and cooperative. RN spoke to patient in his room. Patient denies S/I, HI, and AVH. Patient was hanging out in the Community Room this morning with peers when the staff from the [facility] came to evaluate him. Patient told RN he messed up last time he was there. RN advised patient to tell them exactly that and explain how he will do better next time. Per Leticia, S/W, the [facility] is on the fence about patient and they don't have any open beds at this time. Patient is cooperative and in the Community Room and his bed off and on in the afternoon. Patient is still concerned about his lab results which are not back yet. Plan : Pt. requires interruption of current crisis, medication adjustments, and a safe and supportive environment.
[2022-10-14 19:00] VITALS: RESP 16; O2SAT 99
[2022-10-14 20:00] VITALS: BP 126/75; PULSE 75; RESP 16; TEMP 97.5; O2SAT 99
[2022-10-14] MEDS: mirtazapine 15mg tablet PO SCH (21:44)
--- NOTE | 2022-10-15 02:06 | NUR ---
Nursing Progress Note: Ilda Problem : Pt admitted for suicide attempt by taking about 12 pills, drinking alcohol and using methamphetamines. Pt reported It became too much to live and no reason for me to live. Not able to make a safety plan and is asking for help today. Pt had a suicide attempt in February of 2022 when he jumped off a bridge. Multiple attempts in past such as laying on the road, suicide by atomic spectroscopist and overdosing. Interventions : Maintained a safe and supportive environment, ensured contract for safety, provided clear and simple instructions, provided active listening and positive encouragement, encouraged participation on the unit, and maintained Q 15min safety checks. Response : Patient received eating dinner in the community room at change of shift. Pt. is social with peers and staff. Pt. is pleasant and cooperative. Pt. spent the evening in the community room watching TV and talking on the phone. He participated in evening snack. Denies SI/HI/AH/VH. Pt. is medication compliant. Observed and appears to be sleeping without difficulty. Plan : Pt. requires interruption of current crisis, medication adjustments, and a safe and supportive environment.
[2022-10-15 06:15] LABS: CHLAMYDIA TRACHOMATIS, NAA Negative (Negative)
[2022-10-15 08:00] VITALS: BP 88/40; PULSE 60; RESP 18; TEMP 98.1; O2SAT 99
[2022-10-15] MEDS: vitamin B comp w/Vit. C tab 1 TAB TABLET PO SCH (08:45)
[2022-10-15] MEDS: venlafaxine XR 75mg capsule (Q24H) PO SCH (08:45)
[2022-10-15] MEDS: magnesium hydroxide 30ml (MOM) UD suspension PO PRN (13:56)
--- NOTE | 2022-10-15 15:15 | NUR ---
CASE MANAGEMENT Pt has been accepted to the [facility] for tomorrow afternoon. Suki Lanier LCSW
[2022-10-15] MEDS ORDERED: HYDR-3686 PO (16:10)
[2022-10-15] MEDS ORDERED: VENL150T3 PO (16:10)
[2022-10-15] MEDS ORDERED: REM30T PO (16:10)
--- NOTE | 2022-10-15 16:40 | NUR ---
Nursing Progress Note: Problem: Pt admitted for suicide attempt by taking about 12 pills, drinking alcohol and using methamphetamines. Pt reported It became too much to live and no reason for me to live. Not able to make a safety plan and is asking for help today. Pt had a suicide attempt in February of 2022 when he jumped off a bridge. Multiple attempts in past such as laying on the road, suicide by atomic spectroscopist and overdosing. Interventions: Medication administration/education/monitoring; 1:1 morning assessment with therapeutic communication and active listening; maintained a safe and supportive environment, ensured contract for safety, provided positive encouragement, encouraged participation on the unit, and maintained Q 15min safety checks. Response: Pt is medication compliant. He reports he wakes up in the middle of the night with a lot on his mind. He reports normal BM's. BP remains low with automatic cuff. Manual cuff BP 137/78 in afternoon. 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
[2022-10-15 19:00] VITALS: RESP 14; O2SAT 100
[2022-10-15 20:00] VITALS: BP_SYST 115; BP_SYST 134; BP_DIAS 70; BP_DIAS 78; PULSE 60; RESP 14; TEMP 97.7; O2SAT 96
[2022-10-15] MEDS: mirtazapine 15mg tablet PO SCH (21:26)
--- NOTE | 2022-10-16 01:53 | NUR ---
Nursing Progress Note: Problem: Pt admitted for suicide attempt by taking about 12 pills, drinking alcohol and using methamphetamines. Pt reported It became too much to live and no reason for me to live. Not able to make a safety plan and is asking for help today. Pt had a suicide attempt in February of 2022 when he jumped off a bridge. Multiple attempts in past such as laying on the road, suicide by engraver copperplate and overdosing. Interventions: Medication administration/education/monitoring; 1:1 morning assessment with therapeutic communication and active listening; maintained a safe and supportive environment, ensured contract for safety, provided positive encouragement, encouraged participation on the unit, and maintained Q 15min safety checks. Response: Pt. sitting quietly in community room watching TV at change of shift. Pt. is medication compliant . Pt. showered this evening and participated in evening snack. Pt. reports having little depression but it's been getting better since being here. Pt. reports having a "good day" and that he is looking forward to leaving tomorrow. Pt. is medication compliant. Observed and appears to be sleeping without difficulty. Plan: Pt will discharge to [facility] in the morning. Addendum: 10/16/22 at 0439 by Maggi Yao RN I have reviewed and agree with all interventions, assessments performed and documented by Abdirahman Johnston.
[2022-10-16 07:30] VITALS: BP 106/57; PULSE 68; RESP 16; TEMP 98.1; O2SAT 99
[2022-10-16] MEDS: vitamin B comp w/Vit. C tab 1 TAB TABLET PO SCH (07:56)
[2022-10-16] MEDS: venlafaxine XR 75mg capsule (Q24H) PO SCH (07:56)
--- NOTE | 2022-10-16 10:42 | NUR ---
DISCHARGE PLAN Pt will be picked up by the [facility] at 2PM today. Pt is aware. Suki Lanier LCSW
[2022-10-16] MEDS ORDERED: docusate sod 100mg capsule PO ONE (15:45)
--- NOTE | 2022-10-16 16:14 | NUR ---
Nursing Progress Note: Problem: Pt admitted for suicide attempt by taking about 12 pills, drinking alcohol and using methamphetamines. Pt reported It became too much to live and no reason for me to live. Not able to make a safety plan and is asking for help today. Pt had a suicide attempt in February of 2022 when he jumped off a bridge. Multiple attempts in past such as laying on the road, suicide by helicopter specialist and overdosing. Interventions: Medication administration/education/monitoring; 1:1 morning assessment with therapeutic communication and active listening; maintained a safe and supportive environment, ensured contract for safety, provided positive encouragement, encouraged participation on the unit, and maintained Q 15min safety checks. Response: RN received pt. asleep in bed at start of shift. Pt. awoke for breakfast and took all medications and went back to sleep. 1:1 done at bedside, pt. denies SI/HI, A/V hallucinations. Pt. was supposed to go to [facility] today but it was cancelled due to a bed not being ready. Pt. c/o constipation and started on Colace 100mg BID. Plan: Pt will discharge to [facility] tomorrow.
[2022-10-16 19:00] VITALS: RESP 14; O2SAT 100
[2022-10-16 20:07] VITALS: BP 143/89; PULSE 67; RESP 17; TEMP 97.9; O2SAT 99
[2022-10-16] MEDS: mirtazapine 15mg tablet PO SCH (21:19)
[2022-10-16] MEDS: docusate sod 100mg capsule PO SCH (21:19)
--- NOTE | 2022-10-17 03:27 | NUR ---
Nursing Progress Note: Problem: Pt admitted for suicide attempt by taking about 12 pills, drinking alcohol and using methamphetamines. Pt reported It became too much to live and no reason for me to live. Not able to make a safety plan and is asking for help today. Pt had a suicide attempt in February of 2022 when he jumped off a bridge. Multiple attempts in past such as laying on the road, suicide by certified endoscopy technician and overdosing. Interventions: Medication administration/education/monitoring; 1:1 morning assessment with therapeutic communication and active listening; maintained a safe and supportive environment, ensured contract for safety, provided positive encouragement, encouraged participation on the unit, and maintained Q 15min safety checks. Response: Patient received walking in hallway. During 1:1, patient seemed kind and much better than day one. Patient denied all psych symptoms. Patient admitted to feeling better and ready to go to [facility] tomorrow 10/17. 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 Patient states he has a one year old daughter, and thats why he is here in [facility] Other Than that his home is [place]. Patient LBM 10/16. Plan: Pt will discharge to [facility] tomorrow.
[2022-10-17 07:00] VITALS: RESP 16; O2SAT 99
[2022-10-17 08:00] VITALS: BP 95/60; PULSE 61; RESP 16; TEMP 97.8; O2SAT 99
[2022-10-17] MEDS: docusate sod 100mg capsule PO SCH (08:00)
[2022-10-17] MEDS: vitamin B comp w/Vit. C tab 1 TAB TABLET PO SCH (08:24)
[2022-10-17] MEDS: venlafaxine XR 75mg capsule (Q24H) PO SCH (08:25)
--- NOTE | 2022-10-17 11:00 | NUR ---
Discharge note: Pt. was was discharged to [facility], pt was picked by [employer]er [employer], pt. discharged with all valuables and belongings, pt. signed all discharge paperwork, pt. verbalized understand of discharge instructions and medications, pt. denies HI/SI, A/VH. Pt. A& O x4 and denies any distress.
== END 2022-10-17 11:00 | DRG 751 ==
LOC: ER 21:39 → ADULT MH 10-09 12:55
PROVIDERS: ADMIT Psychiatry & Neurology Psychiatry; ATTEND Psychiatry & Neurology Psychiatry
DX: F33.1 Major depressive disorder, recurrent, moderate (principal); R45.851 Suicidal ideations; Z20.822 Contact with and (suspected) exposure to COVID-19; F15.20 Other stimulant dependence, uncomplicated; F41.9 Anxiety disorder, unspecified; F12.90 Cannabis use, unspecified, uncomplicated; G47.00 Insomnia, unspecified; F20.9 Schizophrenia, unspecified; Z59.00 Homelessness unspecified; Z80.9 Family history of malignant neoplasm, unspecified; Z91.51 Personal history of suicidal behavior; Z79.899 Other long term (current) drug therapy; Z71.51 Drug abuse counseling and surveillance of drug abuser; Z62.810 Personal history of physical and sexual abuse in childhood
CPT/HCPCS: 36415; 71045; 80053; 80074; 80305; 80320; 80329; 81001; 83036; 83690; 83721; 84443; 85025; 86592; 86703; 87081; 87491; 87811; 99285; A6250; Q0177

== ENCOUNTER 2022-12-12 18:27 | Emergency (ER) | payer MEDICAID ==
[~2022-12-12] VITALS: Ht 185.4 cm; Wt 104.0 kg
[~2022-12-12 18:27] MED LIST changes: -FLUT16SP NS; -NICO-687 TD; +REM30T PO; -TRAZ-256 PO
[2022-12-12 18:42] VITALS: BP 132/66; PULSE 78; RESP 17; TEMP 98.5; O2SAT 98
--- NOTE | 2022-12-12 20:04 | NUR ---
I have reviewed and agree with all interventions, assessments performed and documented by kym easley
[2022-12-12] MEDS ORDERED: dexamethasone sod phosphate 10mg/ml inj IM STA (20:09)
[2022-12-12] MEDS ORDERED: NIRM1TAB PO (20:22)
== END 2022-12-12 20:22 | disposition home or self-care (01) ==
LOC: ER 18:28
DX: U07.1 COVID-19 (principal); J12.9 Viral pneumonia, unspecified; F12.90 Cannabis use, unspecified, uncomplicated; F15.90 Other stimulant use, unspecified, uncomplicated; Z72.89 Other problems related to lifestyle; Z79.899 Other long term (current) drug therapy
CPT/HCPCS: 96372; 99283; J1100

== ENCOUNTER 2023-02-24 15:46 | Emergency (ER) | payer MEDICAID ==
[~2023-02-24] VITALS: Ht 185.4 cm; Wt 113.9 kg
[~2023-02-24 15:46] MED LIST changes: +NIRM1TAB PO
[2023-02-24 16:06] VITALS: BP 136/85; PULSE 85; RESP 18; TEMP 99.6; O2SAT 99
[2023-02-24] MEDS ORDERED: LIDOCAINE 1%/EPI 1:100,000 inj. 10 ML multi-dose vial SQ ONE (16:40)
[2023-02-24] MEDS ORDERED: LIDOcaine 1% W/epiNEPHrine 1:100,000 20ml vial SQ ONE (16:40)
[2023-02-24] MEDS ORDERED: cephalexin 500mg capsule PO ONE (17:30)
[2023-02-24] MEDS ORDERED: CEPH250T PO (17:31)
== END 2023-02-24 17:57 ==
LOC: ER 15:46
DX: L02.31 Cutaneous abscess of buttock (principal); F12.90 Cannabis use, unspecified, uncomplicated; F15.90 Other stimulant use, unspecified, uncomplicated; Z59.00 Homelessness unspecified; Z79.2 Long term (current) use of antibiotics; Z79.899 Other long term (current) drug therapy
CPT/HCPCS: 10060; 99284; J7030; A6258; A6449

== ENCOUNTER 2023-10-05 17:51 | Emergency (ER) | payer MEDICAID ==
[~2023-10-05] VITALS: Ht 185.4 cm; Wt 104.0 kg
[2023-10-05 18:59] LABS: EOSINOPHILS % (AUTO) 0.9 % (0-6); NEUTROPHILS # (AUTO) 3.2 X10'3 (1.8-7.7)
[2023-10-05 19:01] LABS: BASOPHILS % (AUTO) 0.6 % (0-1); HEMATOCRIT 45.6 % (42.0-52.0); HEMOGLOBIN 14.8 g/dl (14.0-17.9); LYMPHOCYTES % (AUTO) 19.8 % (21-51); MEAN CORPUSCULAR HEMOGLOBIN 29.6 PG (27.0-31.0); MEAN CORPUSCULAR HGB CONC 32.5 g/dL (33.0-36.5); MEAN CORPUSCULAR VOLUME 90.9 FL (78-98); MEAN PLATELET VOLUME 6.8 FL (7.4-10.4); MONOCYTES # (AUTO) 0.6 X10'3 (0-0.9); MONOCYTES % (AUTO) 11.7 % (2-12); PLATELET COUNT 282 X10'3 (140-440); RED BLOOD COUNT 5.02 X10'6 (4.70-6.10); RED CELL DISTRIBUTION WIDTH 14.3 % (11.5-14.5); WHITE BLOOD COUNT 4.8 X10'3 (4.5-11.0)
[2023-10-05 19:03] LABS: BILIRUBIN,URINE SMALL (Neg); CLARITY,URINE SLIGHTLY CLOUDY (Clear); GLUCOSE, URINE NEGATIVE (Neg); KETONES,URINE 40 mg/dl (Neg); LEUKOCYTE ESTERASE ,URINE NEGATIVE (Neg); NITRITES, URINE NEGATIVE (Neg); OCCULT BLOOD,URINE TRACE-INTACT (Neg); PH,URINE 6.5 (4.8-8.0); PROTEIN,URINE 30 mg/dl (Neg)
[2023-10-05 19:10] LABS: COLOR,URINE DARK YELLOW (Yellow); UA COLLECTION TYPE CLN CATCH MIDSTREAM
[2023-10-05 19:15] LABS: URINE AMPHETAMINE SCREEN POSITIVE (Neg); URINE BARBITUATE SCREEN NEGATIVE (Neg); URINE BENZODIAZEPINES SCREEN NEGATIVE (Neg); URINE CANNABINOID SCREEN POSITIVE (Neg); URINE COCAINE SCREEN NEGATIVE (Neg); URINE METHADONE SCREEN NEGATIVE (Neg); URINE OPIATE SCREEN NEGATIVE (Neg); URINE PHENCYCLIDINE SCREEN NEGATIVE (Neg)
[2023-10-05 19:15] LABS: ALANINE AMINOTRANSFERASE 88 U/L (12-78); ALBUMIN 4.3 G/DL (3.4-5.0); ALKALINE PHOSPHATASE 109 IU/L (46-116); ANION GAP 8 (8-16); ASPARTATE AMINO TRANSFERASE 96 U/L (10-37); BILIRUBIN,TOTAL 1.9 MG/DL (0.1-1.0); BLOOD UREA NITROGEN 13 MG/DL (7-18); BUN/CREATININE RATIO 9.9 (10.0-20.0); CALCIUM 9.7 MG/DL (8.5-10.1); CHLORIDE 99 MMOL/L (99-107); CREATININE 1.31 MG/DL (0.60-1.10); GLUCOSE 94 MG/DL (70-104); POTASSIUM 4.2 MMOL/L (3.5-5.1); SODIUM 136 MMOL/L (135-145); TOTAL CARBON DIOXIDE 29.1 MMOL/L (24-32); TOTAL PROTEIN 8.8 G/DL (6.4-8.2); eCRCL 86 ML/MIN; eGFR 74 ML/MIN
[2023-10-05] MEDS: LORazepam 1 MG tablet PO ONE (19:23)
[2023-10-05 19:24] LABS: ETHANOL < 10 MG/DL (<10); THYROID STIMULATING HORMONE 1.17 ulU/ml (0.34-4.50)
[2023-10-05 19:27] LABS: MUCUS STRANDS MANY /LPF (Neg); SQUAMOUS EPITHELIAL CELL,UR FEW /LPF (FEW)
[2023-10-05 19:28] LABS: BACTERIA,URINE FEW /HPF (Neg); FINE GRANULAR CAST 0-3 /LPF (NEGATIVE); HYALINE CASTS 0-3 /LPF (NEGATIVE); WBC,URINE 0-4 /HPF (0-4)
[2023-10-06 06:02] VITALS: BP 144/89; PULSE 58; RESP 18; TEMP 98; O2SAT 98
[2023-10-06] MEDS ORDERED: NO HOME MEDS (07:10)
== END 2023-10-06 14:52 ==
LOC: ER 17:53
DX: R45.851 Suicidal ideations (principal); F32.A Depression, unspecified; F20.9 Schizophrenia, unspecified; F12.90 Cannabis use, unspecified, uncomplicated; F15.90 Other stimulant use, unspecified, uncomplicated; F10.90 Alcohol use, unspecified, uncomplicated; Z59.00 Homelessness unspecified; Z20.822 Contact with and (suspected) exposure to COVID-19
CPT/HCPCS: 36415; 80053; 80305; 80320; 81001; 84443; 85025; 87811; 99285